=== PATIENT | female | born 1960 | race Caucasian/White ===

== ENCOUNTER 2017-02-07 11:48 | Day surgery (SDC) | payer BC ==
[2017-02-02 08:58] LABS: HEMATOCRIT 40.1 % (36.0-48.0); HEMOGLOBIN 13.2 g/dL (12.0-16.0)
--- NOTE | ~2017-02-07 | OP ---
Record Of Operation [facility] [address] [place]. [address] NAME: JODY DOUGLAS : 58 STATUS : [facility]#: [id number] AGE: 56 ADM/REG DATE : 02/07/17 MR#: [id number] REPORT SERV DATE: 02/13/17 DICTATED BY: Delilah MONTANA DATE: 02/12/17 REPORT STATUS : Draft TRANSCRIBED BY: DANGELO DATE: 02/12/17 DATE OF PROCEDURE: PREOPERATIVE DIAGNOSES: 1. Basal cell carcinoma of the right cheek. 2. Defect of the right cheek secondary to Mohs micrographic surgical excision of basal cell carcinoma. POSTOPERATIVE DIAGNOSES: 1. Basal cell carcinoma of the right cheek. 2. Defect of the right cheek secondary to Mohs micrographic surgical excision of basal cell carcinoma. NAME OF THE OPERATION: 1. Surgical excisional preparation of right cheek defect. 2. Reconstruction of right cheek defect with large cheek rotation flap. 3. Reconstruction of secondary lateral cheek donor site defect with rotation flap closure. FINDINGS: Right mid cheek defect measuring 1.9 cm tall by 2 cm wide, located 6 mm from the right melolabial fold and 11 mm from the lateral nasal ala and 5 mm from the orbital rim, all edges of beveled; a 5 cm x 8 cm cheek rotation flap developed; an 8 cm x 2 cm lateral cheek rotation flap closure of donor site. INDICATION: This 56-year-old female had a biopsy-proven basal cell carcinoma of the right mid cheek removed by Mohs micrographic surgical technique this morning. This took four passes to get clear margins by Mohs micrographic surgical technique. This has resulted in a large defect of the right mid cheek. In a separate consultation, prior to the Mohs surgery, I discussed in my office the pros and cons, alternatives, benefits, risks, limitations, and complications of reconstruction of the anticipated cheek defect. We discussed the risk of suture reaction, infection, scarring, distortion of the face, recurrence of tumor, anesthesia reactions, imponderables. She understands, wishes to proceed with reconstruction. No guarantees expressed. Proper consent obtained. DESCRIPTION OF PROCEDURE: She was taken into the operating room and given general oral endotracheal anesthesia in the supine position. The dressing on her face was removed revealing the large defect. The entire face and neck and right ear and right postauricular and periauricular scalp were prepped with Hibiclens and saline followed by isopropyl alcohol. None of these solutions got in her eyes. None of the alcohol got in the wound. Sterile drapes were applied. This was a large defect, measuring as stated above. It was felt that the best reconstruction would be a large cheek rotation flap. The melolabial fold was marked out bilaterally. On the right side, the extension of this line was marked in the nasofacial sulcus and then followed along the orbital rim just above the defect and curving superolaterally up just past the level of the lateral canthus, then curving down toward the bottom of the earlobe where it attached to the face. The entire incision line was injected Record Of Operation [facility] [address] [facility] [place]. [address] NAME: JODY DOUGLAS : 58 STATUS : [facility] PAT#: [id number] AGE: 56 ADM/REG DATE : 02/07/17 MR#: [id number] REPORT SERV DATE: 02/13/17 DICTATED BY: Delilah MONTANA DATE: 02/12/17 REPORT STATUS : Draft TRANSCRIBED BY: DANGELO DATE: 02/12/17 with 1% Xylocaine with 1:100,000 epinephrine followed by 0.5% Marcaine with 1:200,000 epinephrine. The entire cheek was sparingly injected with similar solutions. First the cheek flap was developed through the defect, elevating up to the orbital rim and laterally to the level of the lateral canthus and down to the earlobe and almost to the edge of the mandible. This was all done with the [employer] needle tip cautery at a low setting in the subcutaneous plane above the level of the muscle and above the level of the SMAS. At this point, it could be seen that this flap would mobilize rather well and then it was therefore incised according to all the markings which included the cheek and infraorbital rim area and nasofacial sulcus down the melolabial fold. This reflected this flap quite nicely. At this point, the wound was also surgically excisionally prepared by removing a triangle of skin down from the level of the oral commissure and then upwards removing the beveled edges of the lateral aspect of the defect up to the orbital rim. This tissue was removed and discarded and this allowed for the rotation flap to fit nicely at the melolabial fold and nasofacial junction. The flap was secured with 4-0, 5-0, and 6-0 Vicryl. At this point, the flap was anchored at the level of the lateral canthus with a 3-0 Vicryl suture anchoring this to the lateral orbital rim at the level of the lateral canthus. The redundancy of this flap was then slightly trimmed along the orbital rim and secured with interrupted 5-0 and 6- 0 Vicryl. At this point, there was still a donor site defect lateral to the anchoring stitch all the way to the area of the earlobe. A superior cheek flap was then elevated approximately 2 cm x 8 cm long and this was rotated in a fashion to keep tension off the flap and not to distort the large cheek flap. This was secured with sutures of 3-0 and 4-0 Vicryl. All the skin edges coapted very nicely and the entire wound was closed with Dermabond on the skin. At the end of the procedure there was no ectropion and no scleral show, and actually redundancy of skin of the eyelid being pushed superiorly to anticipate some relaxation of the flap. The flap was cleansed with hydrogen peroxide and dried. Mastisol and paper tape were applied in an antitension fashion to the entire reconstruction. The flap had good capillary refill. Hemostasis was excellent. Estimated blood loss was 10 mL. She was awakened, extubated, and taken to the recovery room in good condition having tolerated the procedure well. Home going instructions included cephalexin 500 mg, #20, one p.o. b.i.d.; hydrocodone 7.5 mg/325 APAP, dispensed 25, one p.o. q.4 to 6h p.r.n. pain.; generic Zofran 8 mg ODT #9, one dissolved orally q.6h. p.r.n. nausea or vomiting. Recheck in the office in 13 days. LORETO/DANGELO Delilah [place] M.D. / [id number]
[~2017-02-07 11:48] MED LIST: *DENIES; ALIGN4 MG PO; HALF81 PO; MULTIPLE VIT PO; OS500+D PO; VITAMIN D2000 UNIT PO
== END 2017-02-07 19:38 | disposition home or self-care (01) ==
LOC: SDC 11:48
PROVIDERS: Specialist
PROC: 0HX1XZZ Transfer Face Skin, External Approach (ICD-10-PCS; principal; 2017-02-07 13:15)
DX: C44.319 Basal cell carcinoma of skin of other parts of face (principal); M19.90 Unspecified osteoarthritis, unspecified site; K21.9 Gastro-esophageal reflux disease without esophagitis; Z79.52 Long term (current) use of systemic steroids; Z79.899 Other long term (current) drug therapy; Z90.710 Acquired absence of both cervix and uterus; Z90.49 Acquired absence of other specified parts of digestive tract; Z79.82 Long term (current) use of aspirin; Z98.890 Other specified postprocedural states
CPT/HCPCS: 85014; 85018; 93005; A9270-GY; J0690; J2250; J2370; J2405; J2710; J3010